=== PATIENT | male | born 1935 | race Caucasian/White ===

== ENCOUNTER 2017-03-07 07:56 | Day surgery (SDC) | payer MEDICARE ==
--- NOTE | ~2017-03-07 | EGD ---
EGD REPORT [facility] [address] [address] NAME: GOVIND BREWSTER SR : 39 [place] [facility] [place] [id number] AGE: 81 ADM/REG DATE : 03/07/17 MR#: [id number] REPORT SERV DATE: 03/07/17 DICTATED BY: JUSTINE BARBOUR DATE: 03/07/17 REPORT STATUS : Draft [facility]ANS[facility]IBED BY: [facility] DATE: 03/07/17 End[facility] Center Patient Name: Govind Brewster Sr Date of : 1935 Attending MD: JUSTINE BARBOUR MD Procedure Date No Time: 03/07/2017 Procedure: Colonoscopy Indications: High risk colon cancer surveillance: Personal history of colonic polyps Referring MD: JUSTINE PERRY MD Medicines: as per anesthesia Complications: No immediate complications. Procedure: Pre-Anesthesia Assessment: - ASA Grade Assessment: II - A patient with mild systemic disease. After I obtained informed consent, the scope was passed under direct vision. Throughout the procedure, the patient's blood pressure, pulse, and oxygen saturations were monitored continuously. The PCF [id number] was introduced through the anus and advanced to the cecum, identified by appendiceal orifice and ileocecal valve. The colonoscopy was somewhat difficult due to multiple diverticula in the colon, restricted mobility of the colon, significant looping and a tortuous colon. The patient tolerated the procedure. The quality of the bowel preparation was fair. Findings: The perianal and digital rectal examinations were normal. Multiple small and large-mouthed diverticula were found in the sigmoid colon, in the descending colon, in the transverse colon and in the ascending colon. Internal hemorrhoids were found during endoscopy and were mild. Impression: - Diverticulosis in the sigmoid colon, in the descending colon, in the transverse colon and in the ascending colon. - Internal hemorrhoids. Recommendation: - Continue present medications. Procedure Code(s): --- Professional --- 49211, Colonoscopy, flexible, proximal to splenic flexure; diagnostic, with or without collection of specimen(s) by brushing or washing, with or without EGD REPORT [facility] [address] [facility] [place] [address] NAME: NEY SRGOVIND WILKERSON : [birth year] [place] [facility] [place]#: [id number] AGE: 81 ADM/REG DATE : 03/07/17 MR#: [id number] REPORT SERV DATE: 03/07/17 DICTATED BY: JUSTINE BARBOUR DATE: 03/07/17 REPORT STATUS : Draft TRANSCRIBED BY: [employer] DATE: 03/07/17 colon decompression (separate procedure) Diagnosis Code(s): --- Professional --- K64.8, Other hemorrhoids K57.30, Diverticulosis of large intestine without perforation or abscess without bleeding Z86.010, Personal history of colonic polyps CPT copyright 2013 [employer]. All rights reserved. The codes documented in this report are preliminary and upon senior web services developer review may be revised to meet current compliance requirements. JUSTINE BARBOUR MD 03/07/2017 10:39 AM This report has been signed electronically. Number of Addenda: 0 Note Initiated On: 03/07/2017 10:03 AM Scope Withdrawal Time 0 hours 7 minutes 19 seconds [address] [facility] [place] [address]
[~2017-03-07 07:56] MED LIST: ATEN25 PO; ATEN50 PO; BEN25 PO; BENEMID500 PO; CINNAMON PO; CLARIT10 PO; DIABET1.25 PO; FORTAMET500 MG PO; GLUCCHONDR PO; GLUCOPHAGE1000 MG PO; GLUCOV2.5 PO; GLUCXL5 PO; LIALDA1.2 GM RE; MICARDIS80 PO; MULTIPLE VIT PO; NORV5 PO; PRAVACHOL40 MG PO; PROZAC PO; TYLENOL PM PO; X25 PO; ZINC PO; [UNRECOGNIZED DRUG - OTHER] PO; [UNRECOGNIZED DRUG - OTHER] PO
== END 2017-03-07 23:59 | disposition home or self-care (01) ==
LOC: DMU 07:56
PROVIDERS: Internal Medicine Gastroenterology
PROC: 0DJD8ZZ Inspection of Lower Intestinal Tract, Via Natural or Artificial Opening Endoscopic (ICD-10-PCS; principal; 2017-03-07 09:30)
DX: Z12.11 Encounter for screening for malignant neoplasm of colon (principal); K64.8 Other hemorrhoids; I10 Essential (primary) hypertension; G47.33 Obstructive sleep apnea (adult) (pediatric); E11.9 Type 2 diabetes mellitus without complications; K57.30 Diverticulosis of large intestine without perforation or abscess without bleeding; F41.9 Anxiety disorder, unspecified; F32.9 Major depressive disorder, single episode, unspecified; Z87.442 Personal history of urinary calculi; K57.92 Diverticulitis of intestine, part unspecified, without perforation or abscess without bleeding; M19.90 Unspecified osteoarthritis, unspecified site; Z98.41 Cataract extraction status, right eye; Z85.46 Personal history of malignant neoplasm of prostate; Z86.010 Personal history of colon polyps; Z98.890 Other specified postprocedural states; Z90.79 Acquired absence of other genital organ(s); Z98.42 Cataract extraction status, left eye; Z96.1 Presence of intraocular lens; Z90.89 Acquired absence of other organs
CPT/HCPCS: 82962